=== PATIENT | male | born 1945 | race Caucasian/White ===

== ENCOUNTER → 2020-02-18 | Outpatient (CLI) | payer MEDICARE, BC ==
[2020-02-18 13:04] LABS: HEMOGLOBIN 14.5 gm/dl (14.0-17.5); RED BLOOD COUNT 5.02 M/UL (4.20-5.50); WHITE BLOOD COUNT 8.4 K/UL (4.5-11.0)
[2020-02-21 09:09] LABS: CHOLESTEROL, TOTAL 351 mg/dL (100-199); HDL SIZE 8.1 nm (>=9.2); HDL-C 45 mg/dL (>39); HDL-P (TOTAL) 24.5 umol/L (>=30.5); LARGE HDL-P <1.3 umol/L (>=4.8); LARGE VLDL-P 5.3 nmol/L (<=2.7); LDL SIZE 20.5 nm (>20.5); LDL SIZE 20.5 nm (>=20.8); LDL-C 263 mg/dL (0-99); LDL-P 3115 nmol/L (<1000); LP-IR SCORE 77 (<=45); SMALL LDL-P 1164 nmol/L (<=527); TRIGLYCERIDES 209 mg/dL (0-149); VLDL SIZE 49.1 nm (<=46.6)
== END ==
LOC: LAB 11:17
PROVIDERS: Emergency Medicine
DX: I12.9 Hypertensive chronic kidney disease with stage 1 through stage 4 chronic kidney disease, or unspecified chronic kidney disease (principal); E11.22 Type 2 diabetes mellitus with diabetic chronic kidney disease; N18.2 Chronic kidney disease, stage 2 (mild); E78.2 Mixed hyperlipidemia; I95.2 Hypotension due to drugs; N30.00 Acute cystitis without hematuria; N40.1 Benign prostatic hyperplasia with lower urinary tract symptoms; R39.89 Other symptoms and signs involving the genitourinary system; R97.20 Elevated prostate specific antigen [PSA]
CPT/HCPCS: 36415; 80053; 83036; 84550; 85025

== ENCOUNTER → 2020-06-20 | Outpatient (CLI) | payer MEDICARE, BC ==
[2020-06-22 11:15] LABS: CHOLESTEROL, TOTAL 194 mg/dL (100-199); HDL SIZE 8.3 nm (>=9.2); HDL-C 47 mg/dL (>39); HDL-P (TOTAL) 31.8 umol/L (>=30.5); LARGE HDL-P 1.8 umol/L (>=4.8); LARGE VLDL-P 6.9 nmol/L (<=2.7); LDL SIZE 20.4 nm (>20.5); LDL SIZE 20.4 nm (>=20.8); LDL-C 120 mg/dL (0-99); LDL-P 1417 nmol/L (<1000); LP-IR SCORE 76 (<=45); SMALL LDL-P 829 nmol/L (<=527); TRIGLYCERIDES 151 mg/dL (0-149); VLDL SIZE 49.5 nm (<=46.6)
== END ==
LOC: LAB 10:31
PROVIDERS: Emergency Medicine
DX: E78.2 Mixed hyperlipidemia (principal); I12.9 Hypertensive chronic kidney disease with stage 1 through stage 4 chronic kidney disease, or unspecified chronic kidney disease; E11.22 Type 2 diabetes mellitus with diabetic chronic kidney disease; N18.30 Chronic kidney disease, stage 3 unspecified
CPT/HCPCS: 36415; 80053; 80061; 83704

== ENCOUNTER → 2020-12-07 | Outpatient (CLI) | payer MEDICARE, BC | LOC: LAB 11:06 | PROVIDERS: Emergency Medicine | DX: E78.2 Mixed hyperlipidemia (principal); I12.9 Hypertensive chronic kidney disease with stage 1 through stage 4 chronic kidney disease, or unspecified chronic kidney disease; E11.22 Type 2 diabetes mellitus with diabetic chronic kidney disease; N18.30 Chronic kidney disease, stage 3 unspecified; E11.65 Type 2 diabetes mellitus with hyperglycemia | CPT/HCPCS: 36415; 80053 ==

== ENCOUNTER → 2021-02-28 | Outpatient (CLI) | payer OTHER | LOC: LAB 11:08 | PROVIDERS: Emergency Medicine | DX: E11.22 Type 2 diabetes mellitus with diabetic chronic kidney disease (principal); N18.2 Chronic kidney disease, stage 2 (mild); I10 Essential (primary) hypertension; E78.2 Mixed hyperlipidemia | CPT/HCPCS: 36415; 80053; 80061; 83036; 83704; 84550 ==

== ENCOUNTER → 2021-04-14 | Outpatient (CLI) | payer OTHER | LOC: RT 13:15 | DX: Z01.810 Encounter for preprocedural cardiovascular examination (principal) | CPT/HCPCS: 93005 ==

== ENCOUNTER → 2021-08-15 | Outpatient (CLI) | payer OTHER | LOC: LAB 10:43 | PROVIDERS: Emergency Medicine | DX: I12.9 Hypertensive chronic kidney disease with stage 1 through stage 4 chronic kidney disease, or unspecified chronic kidney disease (principal); E11.22 Type 2 diabetes mellitus with diabetic chronic kidney disease; N18.31 Chronic kidney disease, stage 3a; N40.1 Benign prostatic hyperplasia with lower urinary tract symptoms; E78.2 Mixed hyperlipidemia | CPT/HCPCS: 36415; 80053; G0103 ==